=== PATIENT | female | born 1975 | race Asian ===

== ENCOUNTER 2016-11-10 17:11 | Inpatient (IN) | payer OTHER ==
[~2016-11-10] VITALS: Ht 154.9 cm; Wt 46.3 kg
[~2016-11-10 17:11] MED LIST: HYDR-3698 PO; LEVO5TAB13 PO; MONT10TA22 PO; RANI-362 PO; ZOLP10TA2 PO
[2016-11-10 17:17] VITALS: BP_SYST 131
[2016-11-10] MEDS ORDERED: NACL 0.9% 1,000 ML IV ONE (17:45)
[2016-11-10] MEDS ORDERED: ONDANSETRON HCL 4 MG/2 ML VIAL IVP ONE (17:45)
[2016-11-10] MEDS ORDERED: KETOROLAC TROMETHAMINE 30 MG VIAL IVP ONE (17:45)
[2016-11-10 18:01] LABS: BILIRUBIN,URINE 1+ (NEGATIVE); BLOOD, URINE 3+ (NEGATIVE); CLARITY/URINE HAZY (CLEAR); COLOR,URINE YELLOW (YELLOW); GLUCOSE,URINE NEGATIVE (NEGATIVE); KETONES,URINE 3+ (NEGATIVE); LEUKOCYTE ESTERASE ,URINE 1+ (NEGATIVE); NITRITE, URINE NEGATIVE (NEGATIVE); PROTEIN URINE 1+ (NEGATIVE); UROBILINOGEN,URINE 0.2 (0.2-1.0)
[2016-11-10] MEDS ORDERED: MORPHINE 2 MG/ML INJ. SYRINGE IVP ONE (18:15)
[2016-11-10 18:21] LABS: BACTERIA,URINE MODERATE /HPF (None Seen); RBC,URINE >100 /HPF (0-3)
[2016-11-10 18:35] LABS: BASOPHILS % (AUTO) 0.6 % (0.0-2.0); EOSINOPHILS % (AUTO) 0.3 % (0.0-4.0); HEMATOCRIT 34.1 % (36-48); HEMOGLOBIN 11.3 g/dL (12.0-16.0); LYMPHOCYTES # (AUTO) 0.8 K/uL (1.0-5.5); MEAN CORPUSCULAR HEMOGLOBIN 30 pg (27-31); MEAN CORPUSCULAR HGB CONC 33 % (32-36); MEAN CORPUSCULAR VOLUME 91 fL (79.0-98.0); MONOCYTES # (AUTO) 0.4 K/uL (0.0-1.0); NEUTROPHILS # (AUTO) 4.1 K/uL (1.8-7.7); NEUTROPHILS % (AUTO) 77.1 % (40.0-70.0); PLATELET COUNT (AUTO) 346 K/uL (130-430); RED BLOOD CELL COUNT(AUTO) 3.76 MIL/uL (4.2-6.2); RED CELL DISTRIBUTION WIDTH 12.9 % (9.0-15.0); WHITE BLOOD COUNT (AUTO) 5.4 K/uL (4.8-10.8)
[2016-11-10] MEDS ORDERED: cefTRIAXone 1 GM IVPB PREMIX 50 ML IV ONE (18:45)
[2016-11-10] MEDS ORDERED: LIDOCAINE VISCOUS 2%, 15 ML UDC MM ONE (18:45)
[2016-11-10] MEDS ORDERED: MORPHINE 4 MG/ML INJ. SYRINGE IVP ONE (18:45)
[2016-11-10 18:48] LABS: ALBUMIN 3.9 g/dL (3.4-4.8); CALCIUM 8.3 mg/dL (8.4-11.0); CREATININE 0.58 mg/dL (0.55-1.30); TOTAL BILIRUBIN 0.5 mg/dL (0.0-1.0); TOTAL PROTEIN, SERUM 6.7 g/dL (6.4-8.3)
[2016-11-10 18:58] LABS: POTASSIUM 2.9 mmol/L (3.5-5.1)
[2016-11-10] MEDS ORDERED: KCL 40 mEq in 100 mL (PREMIX) 100 ML IV ONE (19:45)
[2016-11-10] MEDS ORDERED: KCL 20 mEq in 100 mL (PREMIX) 100 ML IV ONE (19:57)
[2016-11-10 20:00] VITALS: BP_SYST 120
[2016-11-10 20:06] VITALS: BP_SYST 130
[2016-11-10] MEDS: D5W 500 ML IV SCH (20:26)
[2016-11-10] MEDS: HYDROmorphone 2 MG/ML VIAL IVP PRN (20:47)
[2016-11-10] MEDS: ONDANSETRON HCL 4 MG/2 ML VIAL IVP PRN (20:47)
[2016-11-10] MEDS ORDERED: ACETAMINOPHEN 650 MG/20.3 ML UDC NG PRN (22:30)
[2016-11-10] MEDS ORDERED: PIPERACILLIN/TAZOBACTAM 3.375 GM/VIAL (ZOSYN) IV ONE (22:41)
[2016-11-10] MEDS: PIPERACILLIN/TAZO 3.375/DEX-IS 50 ML IV SCH (23:55)
[2016-11-11] MEDS: HYDROmorphone 2 MG/ML VIAL IVP PRN ×5 (00:47→20:49)
[2016-11-11] MEDS: ONDANSETRON HCL 4 MG/2 ML VIAL IVP PRN ×4 (00:47→14:50)
[2016-11-11] MEDS: D5W 500 ML IV SCH ×4 (00:48→22:39)
[2016-11-11 01:02] VITALS: BP_SYST 126
[2016-11-11] MEDS: PIPERACILLIN/TAZO 3.375/DEX-IS 50 ML IV SCH ×4 (05:26→23:26)
[2016-11-11 05:29] VITALS: BP_SYST 122
[2016-11-11 06:45] LABS: BASOPHILS % (AUTO) 0.2 % (0.0-2.0); EOSINOPHILS # (AUTO) 0.1 K/uL (0.0-0.4); EOSINOPHILS % (AUTO) 1.1 % (0.0-4.0); HEMATOCRIT 33.2 % (36-48); HEMOGLOBIN 10.9 g/dL (12.0-16.0); LYMPHOCYTES # (AUTO) 1.9 K/uL (1.0-5.5); MEAN CORPUSCULAR HEMOGLOBIN 30 pg (27-31); MEAN CORPUSCULAR HGB CONC 33 % (32-36); MEAN CORPUSCULAR VOLUME 91 fL (79.0-98.0); MONOCYTES # (AUTO) 0.6 K/uL (0.0-1.0); MONOCYTES % (AUTO) 5.4 % (1.7-9.3); NEUTROPHILS % (AUTO) 75.3 % (40.0-70.0); PLATELET COUNT (AUTO) 315 K/uL (130-430); RED BLOOD CELL COUNT(AUTO) 3.64 MIL/uL (4.2-6.2); RED CELL DISTRIBUTION WIDTH 12.9 % (9.0-15.0); WHITE BLOOD COUNT (AUTO) 10.6 K/uL (4.8-10.8)
[2016-11-11 06:58] LABS: ALBUMIN 3.4 g/dL (3.4-4.8); CALCIUM 8.2 mg/dL (8.4-11.0); CREATININE 0.48 mg/dL (0.55-1.30); TOTAL BILIRUBIN 0.5 mg/dL (0.0-1.0); TOTAL PROTEIN, SERUM 6.2 g/dL (6.4-8.3)
[2016-11-11 07:49] LABS: POTASSIUM 2.8 mmol/L (3.5-5.1)
[2016-11-11 08:01] VITALS: BP_SYST 138
[2016-11-11] MEDS ORDERED: POTASSIUM CHLORIDE 40 MEQ in NS 250 ML IV ONE (08:45)
[2016-11-11] MEDS ORDERED: POTASSIUM CHLORIDE 40 MEQ, LIDOCAINE JECT 2% PF 100 MG 50 MG in NS 250 ML IV PRN (10:15)
[2016-11-11 12:08] VITALS: BP_SYST 130
[2016-11-11 16:39] VITALS: BP_SYST 130
[2016-11-11 20:43] VITALS: BP_SYST 133
[2016-11-12] VITALS: BP_SYST 120
[2016-11-12] MEDS: HYDROmorphone 2 MG/ML VIAL IVP PRN ×4 (00:59→16:27)
[2016-11-12] MEDS: D5W 500 ML IV SCH ×3 (02:48→14:32)
[2016-11-12 04:23] VITALS: BP_SYST 126
[2016-11-12] MEDS: PIPERACILLIN/TAZO 3.375/DEX-IS 50 ML IV SCH ×3 (05:14→17:09)
[2016-11-12 07:06] LABS: BASOPHILS % (AUTO) 0.4 % (0.0-2.0); EOSINOPHILS # (AUTO) 0.1 K/uL (0.0-0.4); EOSINOPHILS % (AUTO) 1.9 % (0.0-4.0); HEMATOCRIT 34.2 % (36-48); HEMOGLOBIN 11.1 g/dL (12.0-16.0); LYMPHOCYTES % (AUTO) 13.9 % (20.5-51.5); MEAN CORPUSCULAR HEMOGLOBIN 30 pg (27-31); MEAN CORPUSCULAR HGB CONC 33 % (32-36); MEAN CORPUSCULAR VOLUME 91 fL (79.0-98.0); MONOCYTES # (AUTO) 0.4 K/uL (0.0-1.0); MONOCYTES % (AUTO) 5.2 % (1.7-9.3); NEUTROPHILS # (AUTO) 5.5 K/uL (1.8-7.7); NEUTROPHILS % (AUTO) 78.6 % (40.0-70.0); PLATELET COUNT (AUTO) 306 K/uL (130-430); RED BLOOD CELL COUNT(AUTO) 3.75 MIL/uL (4.2-6.2); RED CELL DISTRIBUTION WIDTH 13.2 % (9.0-15.0)
[2016-11-12 07:34] LABS: CALCIUM 8.4 mg/dL (8.4-11.0); CREATININE 0.49 mg/dL (0.55-1.30)
[2016-11-12 08:30] VITALS: BP_SYST 127
[2016-11-12 11:27] VITALS: BP_SYST 114
[2016-11-12 15:34] VITALS: BP_SYST 113
[2016-11-12] MEDS ORDERED: CIPR-211 PO (15:45)
[2016-11-12] MEDS ORDERED: DOCU250C PO (15:45)
[2016-11-12] MEDS ORDERED: POTASSIUM CHLORIDE 20 MEQ TAB.PRT.SR PO ONE ×2 (16:00→19:15)
[2016-11-12 18:30] VITALS: BP_SYST 113
[2016-11-12 18:39] LABS: CALCIUM 8.6 mg/dL (8.4-11.0); CREATININE 0.58 mg/dL (0.55-1.30); POTASSIUM 3.2 mmol/L (3.5-5.1)
== END 2016-11-12 19:40 | disposition home or self-care (01) | DRG 389 ==
LOC: SED 17:11 → SMU 19:05
PROVIDERS: ADMIT General Practice; ATTEND General Practice
DX: K56.60 Unspecified intestinal obstruction (principal); N39.0 Urinary tract infection, site not specified; N20.0 Calculus of kidney; E87.6 Hypokalemia; Z87.442 Personal history of urinary calculi; Z98.891 History of uterine scar from previous surgery
CPT/HCPCS: 36415; 74000-TC; 80048; 80053; 81000-TC; 82150-TC; 83605; 83690-TC; 83735-TC; 84702-TC; 85025; 87040-TC; 87086; 96361; 96365; 96375; 96376; 99291; J0696; J1170; J1885; J2001; J2270; J2405; J2543; J3480; J7050; J7060

== ENCOUNTER 2017-04-25 01:10 | Inpatient (IN) | payer OTHER ==
[~2017-04-25] VITALS: Ht 154.9 cm; Wt 47.6 kg
[~2017-04-25 01:10] MED LIST changes: +CIPR-211 PO; +DOCU250C PO; -LEVO5TAB13 PO; -MONT10TA22 PO
[2017-04-25 01:30] VITALS: BP_SYST 125
[2017-04-25] MEDS ORDERED: CETI10CA PO (01:47)
[2017-04-25] MEDS ORDERED: CETI1TAB2 PO (01:47)
[2017-04-25 01:58] LABS: BILIRUBIN,URINE NEGATIVE (NEGATIVE); BLOOD, URINE 3+ (NEGATIVE); CLARITY/URINE CLEAR (CLEAR); COLOR,URINE YELLOW (YELLOW); GLUCOSE,URINE NEGATIVE (NEGATIVE); KETONES,URINE NEGATIVE (NEGATIVE); LEUKOCYTE ESTERASE ,URINE TRACE (NEGATIVE); NITRITE, URINE NEGATIVE (NEGATIVE); PH,URINE 5.5 (5.0-8.0); PROTEIN URINE TRACE (NEGATIVE); UROBILINOGEN,URINE 0.2 (0.2-1.0)
[2017-04-25 02:11] LABS: BACTERIA,URINE MODERATE /HPF (None Seen); MUCUS,URINE 1+ /LPF (None Seen)
[2017-04-25] MEDS ORDERED: ONDANSETRON 4 MG ODT TAB PO ONE (02:15)
[2017-04-25] MEDS: HYDROcodone/ACETAMIN 5-325 MG TAB (NORCO/ VICODIN) PO ONE ×2 (02:23→02:27)
[2017-04-25] MEDS ORDERED: KETOROLAC TROMETHAMINE 30 MG VIAL IM ONE (02:45)
[2017-04-25] MEDS ORDERED: NACL 0.9% 1,000 ML IV ONE (04:15)
[2017-04-25] MEDS ORDERED: MORPHINE 4 MG/ML INJ. SYRINGE IVP ONE (04:15)
[2017-04-25 04:51] LABS: HEMATOCRIT 30.1 % (36-48); HEMOGLOBIN 9.4 g/dL (12.0-16.0); RED BLOOD CELL COUNT(AUTO) 3.75 MIL/uL (4.2-6.2); WHITE BLOOD COUNT (AUTO) 7.7 K/uL (4.8-10.8)
[2017-04-25 04:52] LABS: BASOPHILS # (AUTO) 0.1 K/uL (0.0-0.2); BASOPHILS % (AUTO) 1.4 % (0.0-2.0); EOSINOPHILS # (AUTO) 0.1 K/uL (0.0-0.4); EOSINOPHILS % (AUTO) 1.3 % (0.0-4.0); LYMPHOCYTES # (AUTO) 1.5 K/uL (1.0-5.5); LYMPHOCYTES % (AUTO) 19.1 % (20.5-51.5); MEAN CORPUSCULAR HEMOGLOBIN 25 pg (27-31); MEAN CORPUSCULAR HGB CONC 31 % (32-36); MEAN CORPUSCULAR VOLUME 80 fL (79.0-98.0); MONOCYTES # (AUTO) 0.7 K/uL (0.0-1.0); MONOCYTES % (AUTO) 9.1 % (1.7-9.3); NEUTROPHILS # (AUTO) 5.3 K/uL (1.8-7.7); NEUTROPHILS % (AUTO) 69.1 % (40.0-70.0); PLATELET COUNT (AUTO) 400 K/uL (130-430); RED CELL DISTRIBUTION WIDTH 16.1 % (9.0-15.0)
[2017-04-25 05:10] LABS: CALCIUM 7.9 mg/dL (8.4-11.0); CREATININE 0.83 mg/dL (0.55-1.30)
[2017-04-25 05:15] LABS: ALBUMIN 3.6 g/dL (3.4-4.8); TOTAL BILIRUBIN 0.4 mg/dL (0.0-1.0)
[2017-04-25 05:16] LABS: POTASSIUM 2.8 mmol/L (3.5-5.1)
[2017-04-25] MEDS ORDERED: POTASSIUM CHLORIDE 20 MEQ/PKT PACKET PO ONE (05:30)
[2017-04-25] MEDS ORDERED: POTASSIUM CHLORIDE 20 MEQ TAB.PRT.SR PO ONE (05:45)
[2017-04-25] MEDS ORDERED: ONDANSETRON HCL 4 MG/2 ML VIAL IVP PRN (05:45)
[2017-04-25 06:12] VITALS: BP_SYST 132
[2017-04-25] MEDS: NACL 0.9% 1,000 ML IV SCH ×3 (07:33→21:40)
[2017-04-25 08:00] VITALS: BP_SYST 132
[2017-04-25] MEDS: TAMSULOSIN HCL 0.4 MG CAP PO SCH ×3 (08:08→21:39)
[2017-04-25] MEDS: cefTRIAXone 1 GM IVPB PREMIX 50 ML IV SCH (09:24)
[2017-04-25] MEDS: KETOROLAC TROMETHAMINE 15 MG VIAL IVP PRN (09:25)
[2017-04-25] MEDS ORDERED: MORPHINE 4 MG/ML INJ. SYRINGE IVP PRN ×4 (10:00→19:45)
[2017-04-25] MEDS ORDERED: ZOLPIDEM TARTRATE 5 MG TABLET PO PRN (10:15)
[2017-04-25] MEDS: POTASSIUM CHLORIDE 20 MEQ TAB.PRT.SR PO SCH ×2 (11:01→21:39)
[2017-04-25 12:00] VITALS: BP_SYST 119
[2017-04-25 14:52] LABS: INR 1.3 (0.8-1.2)
[2017-04-25] MEDS: MORPHINE 2 MG/ML INJ. SYRINGE IVP PRN (15:24)
[2017-04-25 16:46] VITALS: BP_SYST 147
[2017-04-25] MEDS ORDERED: IOPAMIDOL 100 ML INFUS..BTL IV ONE (18:35)
[2017-04-25] MEDS ORDERED: NS IRRIG SOLN 1000 ML IR ONE (18:35)
[2017-04-25] MEDS ORDERED: ONDANSETRON HCL 4 MG/2 ML VIAL IVP ONE (18:35)
[2017-04-25] MEDS ORDERED: LR 1,000 ML IV.SOLN IV ONE (18:35)
[2017-04-25] MEDS ORDERED: MIVACURIUM CHLORIDE 20 MG/10 ML VIAL (MIVACRON) INJ ONE (18:35)
[2017-04-25] MEDS ORDERED: WATER FOR IRRIGATION STERILE IR ONE (18:35)
[2017-04-25] MEDS ORDERED: SEVOFLURANE 15 MIN GAS INH ONE (18:35)
[2017-04-25] MEDS ORDERED: PROPOFOL 200MG/ 20ML VIAL (DIPRIVAN) IV ONE (18:35)
[2017-04-25] MEDS ORDERED: MIDAZOLAM HCL 5 MG/5 ML VIAL IVP ONE (18:35)
[2017-04-25] MEDS ORDERED: IOHEXOL 50 ML IV ONE (18:47)
[2017-04-25] MEDS ORDERED: LR 1,000 ML IV SCH (19:36)
[2017-04-25] MEDS ORDERED: METOCLOPRAMIDE HCL 10 MG/2 ML VIAL IVP PRN (19:45)
[2017-04-25 20:00] VITALS: BP_SYST 111; BP_SYST 118
[2017-04-26 00:47] VITALS: BP_SYST 111
[2017-04-26 06:48] VITALS: BP_SYST 104
[2017-04-26] MEDS: MORPHINE 2 MG/ML INJ. SYRINGE IVP PRN (06:54)
[2017-04-26 07:03] LABS: BASOPHILS % (AUTO) 0.8 % (0.0-2.0); EOSINOPHILS # (AUTO) 0.2 K/uL (0.0-0.4); EOSINOPHILS % (AUTO) 3.8 % (0.0-4.0); HEMATOCRIT 27.5 % (36-48); HEMOGLOBIN 8.8 g/dL (12.0-16.0); LYMPHOCYTES % (AUTO) 22.9 % (20.5-51.5); MEAN CORPUSCULAR HEMOGLOBIN 25 pg (27-31); MEAN CORPUSCULAR HGB CONC 32 % (32-36); MEAN CORPUSCULAR VOLUME 79 fL (79.0-98.0); MONOCYTES # (AUTO) 0.4 K/uL (0.0-1.0); MONOCYTES % (AUTO) 7.9 % (1.7-9.3); NEUTROPHILS # (AUTO) 2.9 K/uL (1.8-7.7); NEUTROPHILS % (AUTO) 64.6 % (40.0-70.0); PLATELET COUNT (AUTO) 419 K/uL (130-430); RED BLOOD CELL COUNT(AUTO) 3.47 MIL/uL (4.2-6.2); RED CELL DISTRIBUTION WIDTH 15.7 % (9.0-15.0); WHITE BLOOD COUNT (AUTO) 4.5 K/uL (4.8-10.8)
[2017-04-26 07:32] LABS: CALCIUM 7.8 mg/dL (8.4-11.0); CREATININE 0.66 mg/dL (0.55-1.30); PHOSPHORUS 3.8 mg/dL (2.7-4.5); POTASSIUM 3.8 mmol/L (3.5-5.1)
[2017-04-26 07:44] VITALS: BP_SYST 138
[2017-04-26] MEDS ORDERED: NON-FORMULARY MEDICATION (Cetirizine Hcl (Zyrtec) 10 MG) PO SCH (09:00)
[2017-04-26] MEDS: POTASSIUM CHLORIDE 20 MEQ TAB.PRT.SR PO SCH (09:43)
[2017-04-26] MEDS: TAMSULOSIN HCL 0.4 MG CAP PO SCH (09:43)
[2017-04-26] MEDS: NACL 0.9% 1,000 ML IV SCH ×2 (09:44→13:43)
[2017-04-26] MEDS: cefTRIAXone 1 GM IVPB PREMIX 50 ML IV SCH (09:44)
[2017-04-26] MEDS: KETOROLAC TROMETHAMINE 15 MG VIAL IVP PRN (09:44)
[2017-04-26 13:00] VITALS: BP_SYST 115
[2017-04-26 16:14] VITALS: BP_SYST 104
[2017-04-26 18:15] VITALS: BP_SYST 104
== END 2017-04-26 18:35 | disposition home or self-care (01) | DRG 669 ==
LOC: SED 01:10 → STU 05:42
PROVIDERS: ADMIT Internal Medicine; ATTEND Internal Medicine
PROC: 0TC68ZZ Extirpation of Matter from Right Ureter, Via Natural or Artificial Opening Endoscopic (ICD-10-PCS; 2017-04-25)
PROC: 0T768DZ Dilation of Right Ureter with Intraluminal Device, Via Natural or Artificial Opening Endoscopic (ICD-10-PCS; principal; 2017-04-25 17:45)
DX: N13.2 Hydronephrosis with renal and ureteral calculous obstruction (principal); D50.9 Iron deficiency anemia, unspecified; E87.6 Hypokalemia; Z79.899 Other long term (current) drug therapy; Z87.442 Personal history of urinary calculi
CPT/HCPCS: 36415; 71010; 76000; 80048; 80053; 81000-TC; 83735-TC; 84100-TC; 84702-TC; 85025; 85610-TC; 85730-TC; 87081; 87086; 93005; 94010; 96361; 96372; 96374; 99285; C1758; C1769; C2625; J0696; J1885; J2250; J2270; J2405; J2704; J7030; J7120; Q0162; Q9967

== ENCOUNTER 2018-09-03 08:56 | Emergency (ER) | payer OTHER ==
[~2018-09-03] VITALS: Ht 154.9 cm; Wt 49.0 kg
[~2018-09-03 08:56] MED LIST changes: +CETI10CA PO; -CIPR-211 PO; -DOCU250C PO; -HYDR-3698 PO; -RANI-362 PO
[2018-09-03 08:57] VITALS: BP_SYST 125
--- NOTE | 2018-09-03 08:57 | NUR ---
Patient arrived via POV, AAOx4, and ambulatory with steady gait. Patient states she feels like she has another kidney stone. Patient states back pain began last night to right flank region. Laying down makes it better. 7/10 pain, sharp. Patient states she had laser surgery to left side 2 weeks ago. Patient able to give urine specimen. Patient changed into a gown.
--- NOTE | 2018-09-03 08:57 | NUR ---
Patient to ER bed 8 to gown for evaluation. Side rails up. Assumed care.
--- NOTE | 2018-09-03 09:25 | NUR ---
ER at bedside examining patient.
[2018-09-03] MEDS ORDERED: MORPHINE 2 MG/ML INJ. SYRINGE IVP ONE (09:45)
[2018-09-03] MEDS ORDERED: KETOROLAC TROMETHAMINE 30 MG VIAL IVP ONE (09:45)
[2018-09-03] MEDS ORDERED: ONDANSETRON HCL 4 MG/2 ML VIAL IVP ONE (09:45)
[2018-09-03] MEDS ORDERED: MORPHINE 4 MG/ML INJ. SYRINGE IVP ONE ×2 (10:00→12:30)
[2018-09-03 10:04] LABS: BILIRUBIN,URINE NEGATIVE (NEGATIVE); BLOOD, URINE 3+ (NEGATIVE); CLARITY/URINE CLEAR (CLEAR); COLOR,URINE YELLOW (YELLOW); GLUCOSE,URINE NEGATIVE (NEGATIVE); KETONES,URINE TRACE (NEGATIVE); LEUKOCYTE ESTERASE ,URINE 2+ (NEGATIVE); NITRITE, URINE NEGATIVE (NEGATIVE); PH,URINE 5.5 (5.0-8.0); PROTEIN URINE 2+ (NEGATIVE); UROBILINOGEN,URINE 0.2 (0.2-1.0)
--- NOTE | 2018-09-03 10:05 | NUR ---
# 20 gauge angiocath placed to RAC. Use of asceptic technique. Opsite placed over site. Blood return noted. Blood for lab drawn from site. Flushed with 10 cc of normal saline. No evidence of infiltration noted. Patient tolerated well.
--- NOTE | 2018-09-03 10:17 | NUR ---
Patient medicated for pain prior to CT Scan, patient tolerated well. Pain rated at 8/10.
[2018-09-03 10:23] LABS: BACTERIA,URINE MODERATE /HPF (None Seen); RBC,URINE 80-100 /HPF (0-3); WBC,URINE 20-50 /HPF (0-3)
[2018-09-03 10:24] LABS: MUCUS,URINE None Seen /LPF (None Seen); YEAST,URINE None Seen /HPF (None Seen)
--- NOTE | 2018-09-03 10:24 | NUR ---
Patient taken to CT scan for exam. Patient pre medicated with pain medication prior to transport. Will follow up upon return.
[2018-09-03 10:27] LABS: HEMATOCRIT 35.6 % (36-48); HEMOGLOBIN 11.6 g/dL (12.0-16.0); MEAN CORPUSCULAR HEMOGLOBIN 30 pg (27-31); MEAN CORPUSCULAR HGB CONC 33 % (32-36); MEAN CORPUSCULAR VOLUME 92 fL (79.0-98.0); RED BLOOD CELL COUNT(AUTO) 3.88 MIL/uL (4.2-6.2); WHITE BLOOD COUNT (AUTO) 4.1 K/uL (4.8-10.8)
[2018-09-03 10:28] LABS: BASOPHILS % (AUTO) 0.9 % (0.0-2.0); CALCIUM 8.3 mg/dL (8.4-11.0); CREATININE 0.55 mg/dL (0.55-1.30); EOSINOPHILS # (AUTO) 0.1 K/uL (0.0-0.4); EOSINOPHILS % (AUTO) 3.7 % (0.0-4.0); LYMPHOCYTES # (AUTO) 1.3 K/uL (1.0-5.5); LYMPHOCYTES % (AUTO) 32.5 % (20.5-51.5); MONOCYTES # (AUTO) 0.3 K/uL (0.0-1.0); MONOCYTES % (AUTO) 7.8 % (1.7-9.3); NEUTROPHILS # (AUTO) 2.2 K/uL (1.8-7.7); NEUTROPHILS % (AUTO) 55.1 % (40.0-70.0); PLATELET COUNT (AUTO) 303 K/uL (130-430); POTASSIUM 3.4 mmol/L (3.5-5.1); RED CELL DISTRIBUTION WIDTH 14.2 % (9.0-15.0)
[2018-09-03 10:36] LABS: INR 1.3 (0.8-1.2); PROTHROMBIN TIME 12.9 SECS (9.5-12.5)
[2018-09-03 10:43] LABS: ALBUMIN 3.5 g/dL (3.4-4.8); TOTAL BILIRUBIN 0.4 mg/dL (0.0-1.0)
--- NOTE | 2018-09-03 10:50 | NUR ---
Pain reassessed at 10. Patient states tolerable at this time. Patient resting comfortably, needs are met at this time.
--- NOTE | 2018-09-03 11:28 | NUR ---
Patient given blankets as requested. Patient needs are met. Will continue to follow up and monitor.
[2018-09-03] MEDS ORDERED: cefTRIAXone 1 GM IVPB PREMIX 50 ML IV ONE (12:30)
--- NOTE | 2018-09-03 12:48 | NUR ---
Patient given pain medication and IV antibiotics. Patient tolerated well. Will continue to follow up and monitor.
[2018-09-03 13:38] VITALS: BP_SYST 109
--- NOTE | 2018-09-03 13:38 | NUR ---
Patient given written and verbal discharge instructions and verbalizes understanding. ER MD discussed with patient the results and treatment provided. Patient in stable condition. ID arm band removed. IV catheter removed intact and dressing applied, no active bleeding. Rx of Zofran, Motrin, Cipro, and [place] given. Patient educated on pain management and to follow up with PMD. Pain Scale 2/10. Opportunity for questions provided and answered. Medication side effect fact sheet provided.
== END 2018-09-03 13:38 | disposition home or self-care (01) ==
LOC: SED 08:56
DX: N39.0 Urinary tract infection, site not specified (principal); R03.0 Elevated blood-pressure reading, without diagnosis of hypertension; Z87.442 Personal history of urinary calculi; Z79.899 Other long term (current) drug therapy
CPT/HCPCS: 36415; 74176; 80053; 81000; 81025; 83690; 84702; 85025; 85610; 85730; 87086; 96374; 96375; 96376; 99284; J0696; J1885; J2270; J2405

== ENCOUNTER 2019-07-27 17:51 | Emergency (ER) | payer OTHER ==
[~2019-07-27] VITALS: Ht 154.9 cm; Wt 48.5 kg
[2019-07-27 17:54] VITALS: BP_SYST 124
[2019-07-27 18:26] LABS: BASOPHILS # (AUTO) 0.1 K/uL (0.0-0.2); BASOPHILS % (AUTO) 0.8 % (0.0-2.0); EOSINOPHILS # (AUTO) 0.1 K/uL (0.0-0.4); EOSINOPHILS % (AUTO) 1.5 % (0.0-4.0); HEMATOCRIT 35.3 % (36-48); HEMOGLOBIN 11.7 g/dL (12.0-16.0); LYMPHOCYTES # (AUTO) 2.3 K/uL (1.0-5.5); LYMPHOCYTES % (AUTO) 39.4 % (20.5-51.5); MEAN CORPUSCULAR HEMOGLOBIN 29 pg (27-31); MEAN CORPUSCULAR HGB CONC 33 % (32-36); MEAN CORPUSCULAR VOLUME 88 fL (79.0-98.0); MONOCYTES # (AUTO) 0.4 K/uL (0.0-1.0); MONOCYTES % (AUTO) 6.3 % (1.7-9.3); NEUTROPHILS # (AUTO) 3.1 K/uL (1.8-7.7); PLATELET COUNT (AUTO) 377 K/uL (130-430); RED BLOOD CELL COUNT(AUTO) 4.02 MIL/uL (4.2-6.2)
[2019-07-27 18:55] LABS: CALCIUM 8.9 mg/dL (8.4-11.0); CREATININE 0.69 mg/dL (0.55-1.30); POTASSIUM 3.9 mmol/L (3.5-5.1)
[2019-07-27 19:00] LABS: ALBUMIN 3.9 g/dL (3.4-4.8); TOTAL BILIRUBIN 0.3 mg/dL (0.0-1.0)
[2019-07-27 19:11] LABS: BILIRUBIN,URINE NEGATIVE (NEGATIVE); BLOOD, URINE 3+ (NEGATIVE); CLARITY/URINE CLEAR (CLEAR); COLOR,URINE YELLOW (YELLOW); GLUCOSE,URINE NEGATIVE (NEGATIVE); KETONES,URINE NEGATIVE (NEGATIVE); LEUKOCYTE ESTERASE ,URINE NEGATIVE (NEGATIVE); NITRITE, URINE NEGATIVE (NEGATIVE); PROTEIN URINE NEGATIVE (NEGATIVE); UROBILINOGEN,URINE 0.2 (0.2-1.0)
[2019-07-27] MEDS ORDERED: KETOROLAC TROMETHAMINE 30 MG VIAL IVP ONE (20:30)
[2019-07-27] MEDS ORDERED: NACL 0.9% 1,000 ML IV ONE (20:30)
[2019-07-27 20:33] LABS: BACTERIA,URINE RARE /HPF (None Seen); RBC,URINE 20-50 /HPF (0-3); WBC,URINE 0-3 /HPF (0-3)
[2019-07-27] MEDS ORDERED: MORPHINE 4 MG/ML INJ. SYRINGE IVP ONE (21:15)
[2019-07-27 21:41] VITALS: BP_SYST 117
== END 2019-07-27 21:38 | disposition home or self-care (01) ==
LOC: SED 17:51
DX: N13.30 Unspecified hydronephrosis (principal); Z79.899 Other long term (current) drug therapy
CPT/HCPCS: 36415; 74176; 80053; 81000; 81025; 85025; 96374; 96375; 99284; J1885; J2270; J7030

== ENCOUNTER 2019-07-29 09:21 | Emergency (ER) | payer OTHER ==
[~2019-07-29] VITALS: Ht 149.9 cm; Wt 56.7 kg
[2019-07-29 09:25] VITALS: BP_SYST 121
[2019-07-29] MEDS ORDERED: NACL 0.9% 1,000 ML IV ONE (09:56)
[2019-07-29] MEDS ORDERED: MORPHINE 2 MG/ML INJ. SYRINGE IVP ONE ×3 (10:15→16:00)
[2019-07-29] MEDS ORDERED: ONDANSETRON HCL 4 MG/2 ML VIAL IVP ONE (10:15)
[2019-07-29 10:18] LABS: BILIRUBIN,URINE NEGATIVE (NEGATIVE); CLARITY/URINE CLEAR (CLEAR); GLUCOSE,URINE NEGATIVE (NEGATIVE); KETONES,URINE NEGATIVE (NEGATIVE); LEUKOCYTE ESTERASE ,URINE NEGATIVE (NEGATIVE); NITRITE, URINE NEGATIVE (NEGATIVE); PH,URINE 6.5 (5.0-8.0); PROTEIN URINE NEGATIVE (NEGATIVE); UROBILINOGEN,URINE 0.2 (0.2-1.0)
[2019-07-29 10:30] LABS: BLOOD, URINE TRACE (NEGATIVE); COLOR,URINE STRAW (YELLOW)
[2019-07-29 10:36] LABS: BASOPHILS % (AUTO) 0.7 % (0.0-2.0); EOSINOPHILS # (AUTO) 0.1 K/uL (0.0-0.4); EOSINOPHILS % (AUTO) 1.9 % (0.0-4.0); HEMATOCRIT 35.6 % (36-48); HEMOGLOBIN 11.5 g/dL (12.0-16.0); LYMPHOCYTES # (AUTO) 1.3 K/uL (1.0-5.5); LYMPHOCYTES % (AUTO) 30.4 % (20.5-51.5); MEAN CORPUSCULAR HEMOGLOBIN 29 pg (27-31); MEAN CORPUSCULAR HGB CONC 32 % (32-36); MEAN CORPUSCULAR VOLUME 89 fL (79.0-98.0); MONOCYTES # (AUTO) 0.4 K/uL (0.0-1.0); MONOCYTES % (AUTO) 10.2 % (1.7-9.3); NEUTROPHILS # (AUTO) 2.4 K/uL (1.8-7.7); NEUTROPHILS % (AUTO) 56.8 % (40.0-70.0); PLATELET COUNT (AUTO) 355 K/uL (130-430); RED BLOOD CELL COUNT(AUTO) 4.01 MIL/uL (4.2-6.2); RED CELL DISTRIBUTION WIDTH 15.9 % (9.0-15.0); WHITE BLOOD COUNT (AUTO) 4.2 K/uL (4.8-10.8)
[2019-07-29 10:39] LABS: CALCIUM 9.1 mg/dL (8.4-11.0); CREATININE 0.76 mg/dL (0.55-1.30); POTASSIUM 3.7 mmol/L (3.5-5.1)
[2019-07-29 10:44] LABS: ALBUMIN 3.8 g/dL (3.4-4.8); TOTAL BILIRUBIN 0.5 mg/dL (0.0-1.0)
[2019-07-29 10:58] LABS: BACTERIA,URINE RARE /HPF (None Seen); WBC,URINE NONE SEEN /HPF (0-3)
[2019-07-29] MEDS ORDERED: fentaNYL CITRATE/PF 100 MCG/2 ML AMP IVP ONE (11:00)
[2019-07-29 16:49] VITALS: BP_SYST 122
== END 2019-07-29 16:49 | disposition short-term general hospital (02) ==
LOC: SED 09:21
DX: N13.30 Unspecified hydronephrosis (principal); N20.0 Calculus of kidney; Z87.442 Personal history of urinary calculi
CPT/HCPCS: 36415; 76770; 80053; 81000; 81025; 85025; 96374; 96375; 96376; 99285; J2270; J2405; J3010; J7030

== ENCOUNTER 2021-08-23 06:33 | Emergency (ER) | payer OTHER ==
[~2021-08-23] VITALS: Ht 154.9 cm; Wt 49.9 kg
[2021-08-23 06:58] VITALS: BP_SYST 100
[2021-08-23 08:07] LABS: BILIRUBIN,URINE 1+ (NEGATIVE); BLOOD, URINE 1+ (NEGATIVE); CLARITY/URINE SL CLOUDY (CLEAR); COLOR,URINE YELLOW (YELLOW); GLUCOSE,URINE NEGATIVE (NEGATIVE); KETONES,URINE 3+ (NEGATIVE); LEUKOCYTE ESTERASE ,URINE NEGATIVE (NEGATIVE); NITRITE, URINE NEGATIVE (NEGATIVE); PROTEIN URINE 1+ (NEGATIVE); UROBILINOGEN,URINE 0.2 (0.2-1.0)
[2021-08-23 08:11] LABS: BASOPHILS % (AUTO) 0.8 % (0.0-2.0); EOSINOPHILS # (AUTO) 0.1 K/uL (0.0-0.4); HEMATOCRIT 38.7 % (36-48); HEMOGLOBIN 12.7 g/dL (12.0-16.0); LYMPHOCYTES # (AUTO) 1.2 K/uL (1.0-5.5); LYMPHOCYTES % (AUTO) 40.2 % (20.5-51.5); MEAN CORPUSCULAR HEMOGLOBIN 28 pg (27-31); MEAN CORPUSCULAR HGB CONC 33 % (32-36); MEAN CORPUSCULAR VOLUME 84 fL (79.0-98.0); MONOCYTES # (AUTO) 0.3 K/uL (0.0-1.0); MONOCYTES % (AUTO) 10.8 % (1.7-9.3); NEUTROPHILS # (AUTO) 1.3 K/uL (1.8-7.7); NEUTROPHILS % (AUTO) 45.2 % (40.0-70.0); PLATELET COUNT (AUTO) 341 K/uL (130-430); RED BLOOD CELL COUNT(AUTO) 4.61 MIL/uL (4.2-6.2); RED CELL DISTRIBUTION WIDTH 15.3 % (9.0-15.0); WHITE BLOOD COUNT (AUTO) 2.9 K/uL (4.8-10.8)
[2021-08-23 08:26] LABS: CALCIUM 8.3 mg/dL (8.4-11.0); CREATININE 0.51 mg/dL (0.55-1.30); POTASSIUM 3.4 mmol/L (3.5-5.1)
[2021-08-23 08:32] LABS: ALBUMIN 3.8 g/dL (3.4-4.8); TOTAL BILIRUBIN 0.3 mg/dL (0.0-1.0)
[2021-08-23 08:44] LABS: BACTERIA,URINE FEW /HPF (None Seen); WBC,URINE NONE SEEN /HPF (0-3)
[2021-08-23] MEDS ORDERED: MORPHINE 4 MG INJ. 4 MG/ML VIAL IVP ONE (08:45)
[2021-08-23] MEDS ORDERED: KETOROLAC TROMETHAMINE 30 MG VIAL IVP ONE (08:45)
[2021-08-23] MEDS ORDERED: HYDR-3917 PO ×2 (09:11)
[2021-08-23] MEDS ORDERED: HYDROcodone/ACETAMIN 10-325 MG TAB PO ONE (09:15)
[2021-08-23 09:25] VITALS: BP_SYST 138
[2021-08-23] MEDS ORDERED: HYDR-3927 PO (09:56)
== END 2021-08-23 09:00 | disposition home or self-care (01) ==
LOC: SED 06:33
DX: R10.9 Unspecified abdominal pain (principal); R31.9 Hematuria, unspecified; R11.0 Nausea; Z87.442 Personal history of urinary calculi
CPT/HCPCS: 36415; 74176; 76376; 80053; 81000; 81025; 85025; 96374; 96375; 99284; J1885; J2270

== ENCOUNTER 2021-12-25 00:13 | Emergency (ER) | payer OTHER ==
[~2021-12-25] VITALS: Ht 154.9 cm; Wt 54.4 kg
[~2021-12-25 00:13] MED LIST changes: +HYDR-3927 PO
[2021-12-25 00:26] VITALS: BP_SYST 118
[2021-12-25 01:23] LABS: BILIRUBIN,URINE NEGATIVE (NEGATIVE); BLOOD, URINE 1+ (NEGATIVE); CLARITY/URINE CLEAR (CLEAR); COLOR,URINE YELLOW (YELLOW); GLUCOSE,URINE NEGATIVE (NEGATIVE); KETONES,URINE NEGATIVE (NEGATIVE); LEUKOCYTE ESTERASE ,URINE NEGATIVE (NEGATIVE); NITRITE, URINE NEGATIVE (NEGATIVE); PROTEIN URINE TRACE (NEGATIVE); UROBILINOGEN,URINE 0.2 (0.2-1.0)
[2021-12-25 01:26] LABS: BASOPHILS % (AUTO) 0.8 % (0.0-2.0); EOSINOPHILS # (AUTO) 0.2 K/uL (0.0-0.4); EOSINOPHILS % (AUTO) 2.5 % (0.0-4.0); HEMATOCRIT 36.5 % (36-48); HEMOGLOBIN 12.3 g/dL (12.0-16.0); LYMPHOCYTES # (AUTO) 2.3 K/uL (1.0-5.5); LYMPHOCYTES % (AUTO) 37.1 % (20.5-51.5); MEAN CORPUSCULAR HEMOGLOBIN 30 pg (27-31); MEAN CORPUSCULAR HGB CONC 34 % (32-36); MEAN CORPUSCULAR VOLUME 91 fL (79.0-98.0); MONOCYTES # (AUTO) 0.5 K/uL (0.0-1.0); MONOCYTES % (AUTO) 7.8 % (1.7-9.3); NEUTROPHILS # (AUTO) 3.1 K/uL (1.8-7.7); NEUTROPHILS % (AUTO) 51.8 % (40.0-70.0); PLATELET COUNT (AUTO) 326 K/uL (130-430); RED BLOOD CELL COUNT(AUTO) 4.04 MIL/uL (4.2-6.2); WHITE BLOOD COUNT (AUTO) 6.1 K/uL (4.8-10.8)
[2021-12-25 01:48] LABS: URINE SULFO SALICYLIC ACID NEGATIVE (NEGATIVE)
[2021-12-25 02:25] LABS: CALCIUM 8.6 mg/dL (8.4-11.0); CREATININE 0.7 mg/dL (0.55-1.30); POTASSIUM 3.6 mmol/L (3.5-5.1)
[2021-12-25 02:32] LABS: ALBUMIN 3.5 g/dL (3.4-4.8); TOTAL BILIRUBIN 0.5 mg/dL (0.0-1.0)
[2021-12-25] MEDS ORDERED: MORPHINE 4 MG INJ. 4 MG/ML VIAL IVP ONE (04:15)
[2021-12-25] MEDS ORDERED: NACL 0.9% 1,000 ML IV ONE (04:15)
[2021-12-25] MEDS ORDERED: ONDANSETRON HCL 4 MG/2 ML VIAL IVP ONE ×2 (04:15)
[2021-12-25] MEDS ORDERED: KETOROLAC TROMETHAMINE 30 MG VIAL IVP ONE (04:15)
[2021-12-25] MEDS ORDERED: HYDROmorphone 1 MG/ML INJ. CARTRIDGE IVP ONE ×2 (05:15→06:30)
--- NOTE | 2021-12-25 05:16 | NUR ---
PATIENT TO CT SCAN.
[2021-12-25] MEDS ORDERED: ONDANSETRON HCL 4 MG/2 ML VIAL ONE (06:44)
--- NOTE | 2021-12-25 07:11 | NUR ---
REPORT GIVEN TO LINDY CARRINGTON
--- NOTE | 2021-12-25 07:24 | NUR ---
Assumed care of pt and pt is in bed resting with no s/s of distress. A&Ox4. Skin intact. VSS. Pt c/o left flank pain 3/10 non-radiating. There is a 22g IV intact on right hand no infiltration noted. NS running bolus. No chest pain and no sob. Deniesn/v. Bed in lowest position.
[2021-12-25] MEDS ORDERED: TRAM50TA PO (07:28)
[2021-12-25 08:11] VITALS: BP_SYST 128
--- NOTE | 2021-12-25 08:12 | NUR ---
Patient given written and verbal discharge instructions and verbalizes understanding. ER MD discussed with patient the results and treatment provided. Patient in stable condition. ID arm band removed. IV catheter removed intact and dressing applied, no active bleeding. Rx of Tramadol given. Patient educated on pain management and to follow up with PMD. Pain Scale 0/10. Opportunity for questions provided and answered. Medication side effect fact sheet provided.
== END 2021-12-25 08:11 | disposition home or self-care (01) ==
LOC: SED 00:13
DX: N23 Unspecified renal colic (principal); Z79.899 Other long term (current) drug therapy
CPT/HCPCS: 99284; 74176; 96374; 96375; 96361; 80053; 85025; 87040; 36415; 76376; 96376; 81025; 83605; 81003; J1885; J2405; J1170; J2270; J7030

== ENCOUNTER 2023-11-23 20:38 | Emergency (ER) | payer OTHER ==
[~2023-11-23] VITALS: Ht 154.9 cm; Wt 47.6 kg
[~2023-11-23 20:38] MED LIST changes: +TRAM50TA PO
[2023-11-23 20:42] VITALS: BP_SYST 92; PULSE 70; RESP 20; TEMP 97.8; O2SAT 100
[2023-11-23] MEDS: HYDROmorphone 1 MG/ML INJ. CARTRIDGE IVP ONE (21:16)
[2023-11-23] MEDS: ONDANSETRON HCL 4 MG/2 ML VIAL IVP ONE (21:17)
[2023-11-23] MEDS: NACL 0.9% 1,000 ML IV ONE (21:20)
[2023-11-23] MEDS ORDERED: PIPERACILLIN/TAZOBACTAM 3.375 GM/VIAL (ZOSYN) IV ONE (21:25)
[2023-11-23] MEDS: ACETAMINOPHEN 500 MG TABLET PO ONE (21:28)
[2023-11-23] MEDS: PIPERACILLIN/TAZO 3.375 GM in NS 50 ML IV ONE (21:28)
[2023-11-23 21:35] LABS: BASOPHILS % (AUTO) 0.5 % (0.0-2.0); BILIRUBIN,URINE NEGATIVE (NEGATIVE); BLOOD, URINE 3+ (NEGATIVE); EOSINOPHILS # (AUTO) 0.1 K/uL (0.0-0.4); EOSINOPHILS % (AUTO) 1.8 % (0.0-4.0); GLUCOSE,URINE NEGATIVE (NEGATIVE); HEMATOCRIT 30.9 % (36-48); HEMOGLOBIN 10.3 g/dL (12.0-16.0); KETONES,URINE NEGATIVE (NEGATIVE); LEUKOCYTE ESTERASE ,URINE 1+ (NEGATIVE); LYMPHOCYTES # (AUTO) 1.3 K/uL (1.0-5.5); LYMPHOCYTES % (AUTO) 25.7 % (20.5-51.5); MEAN CORPUSCULAR HEMOGLOBIN 29 pg (27-31); MEAN CORPUSCULAR HGB CONC 33 % (32-36); MEAN CORPUSCULAR VOLUME 86 fL (79.0-98.0); MONOCYTES # (AUTO) 0.4 K/uL (0.0-1.0); MONOCYTES % (AUTO) 8.7 % (1.7-9.3); NEUTROPHILS # (AUTO) 3.2 K/uL (1.8-7.7); NEUTROPHILS % (AUTO) 63.3 % (40.0-70.0); NITRITE, URINE NEGATIVE (NEGATIVE); PH,URINE 7.5 (5.0-8.0); PLATELET COUNT (AUTO) 299 K/uL (130-430); PROTEIN URINE 3+ (NEGATIVE); RED BLOOD CELL COUNT(AUTO) 3.58 MIL/uL (4.2-6.2); RED CELL DISTRIBUTION WIDTH 14.9 % (9.0-15.0); UROBILINOGEN,URINE 0.2 (0.2-1.0); WHITE BLOOD COUNT (AUTO) 5.1 K/uL (4.8-10.8)
[2023-11-23 21:40] LABS: CLARITY/URINE CLOUDY (CLEAR); COLOR,URINE RED (YELLOW)
[2023-11-23 21:41] LABS: BACTERIA,URINE FEW /HPF (None Seen); MUCUS,URINE None Seen /LPF (None Seen); RBC,URINE >100 /HPF (0-3)
[2023-11-23 21:55] LABS: ALBUMIN 3.3 g/dL (3.4-4.8); BILIRUBIN,DIRECT 0.1 mg/dL (0.0-0.3); CALCIUM 8.5 mg/dL (8.4-11.0); CREATININE 1.1 mg/dL (0.55-1.30); POTASSIUM 4.6 mmol/L (3.5-5.1); TOTAL BILIRUBIN 0.2 mg/dL (0.0-1.0); TOTAL PROTEIN, SERUM 6.4 g/dL (6.4-8.3)
[2023-11-24] MEDS: KETOROLAC TROMETHAMINE 15 MG VIAL IVP ONE (00:28)
[2023-11-24] MEDS ORDERED: IBUP-1969 PO (00:53)
[2023-11-24] MEDS ORDERED: CEFP200T21 PO (00:53)
[2023-11-24] MEDS: MORPHINE 4 MG INJ. 4 MG/ML VIAL IVP ONE (01:02)
[2023-11-24 01:17] VITALS: BP_SYST 107; PULSE 67; RESP 22; TEMP 98; O2SAT 97
== END 2023-11-24 01:17 | disposition home or self-care (01) ==
LOC: SED 20:38
DX: N30.00 Acute cystitis without hematuria (principal); R10.9 Unspecified abdominal pain; Z97.8 Presence of other specified devices; Z87.442 Personal history of urinary calculi; Z88.1 Allergy status to other antibiotic agents; Z88.8 Allergy status to other drugs, medicaments and biological substances; Z79.899 Other long term (current) drug therapy; Z79.2 Long term (current) use of antibiotics
CPT/HCPCS: 99285; 74176; 96365; 96375 ×2; 80076; 80048; 81001; 83690; 85025; 87040; 87086; 36415; 81025; 83605; J2405; J2543; J1170; J1885; J2270; 81000; 81015

== ENCOUNTER 2024-02-27 23:44 | Emergency (ER) | payer OTHER ==
[~2024-02-27] VITALS: Ht 154.9 cm; Wt 49.0 kg
[~2024-02-27 23:44] MED LIST changes: +CEFP200T21 PO; +IBUP-1969 PO
[2024-02-27 23:59] VITALS: BP_SYST 108; PULSE 84; RESP 16; TEMP 97.4; O2SAT 99
[2024-02-28 00:36] LABS: BASOPHILS % (AUTO) 0.7 % (0.0-2.0); EOSINOPHILS # (AUTO) 0.4 K/uL (0.0-0.4); EOSINOPHILS % (AUTO) 7.3 % (0.0-4.0); HEMATOCRIT 33.5 % (36-48); HEMOGLOBIN 11.1 g/dL (12.0-16.0); LYMPHOCYTES # (AUTO) 2.2 K/uL (1.0-5.5); LYMPHOCYTES % (AUTO) 42.1 % (20.5-51.5); MEAN CORPUSCULAR HEMOGLOBIN 29 pg (27-31); MEAN CORPUSCULAR HGB CONC 33 % (32-36); MEAN CORPUSCULAR VOLUME 88 fL (79.0-98.0); MONOCYTES # (AUTO) 0.3 K/uL (0.0-1.0); MONOCYTES % (AUTO) 6.5 % (1.7-9.3); NEUTROPHILS # (AUTO) 2.2 K/uL (1.8-7.7); NEUTROPHILS % (AUTO) 43.4 % (40.0-70.0); PLATELET COUNT (AUTO) 301 K/uL (130-430); RED BLOOD CELL COUNT(AUTO) 3.83 MIL/uL (4.2-6.2); RED CELL DISTRIBUTION WIDTH 15.7 % (9.0-15.0); WHITE BLOOD COUNT (AUTO) 5.2 K/uL (4.8-10.8)
[2024-02-28 00:43] LABS: BILIRUBIN,URINE NEGATIVE (NEGATIVE); CLARITY/URINE CLEAR (CLEAR); COLOR,URINE YELLOW (YELLOW); GLUCOSE,URINE NEGATIVE (NEGATIVE); KETONES,URINE NEGATIVE (NEGATIVE); LEUKOCYTE ESTERASE ,URINE NEGATIVE (NEGATIVE); NITRITE, URINE NEGATIVE (NEGATIVE); PROTEIN URINE NEGATIVE (NEGATIVE); UROBILINOGEN,URINE 0.2 (0.2-1.0)
[2024-02-28 00:44] LABS: BLOOD, URINE TRACE (NEGATIVE)
[2024-02-28 00:56] LABS: ALBUMIN 3.3 g/dL (3.4-4.8); BILIRUBIN,DIRECT 0.1 mg/dL (0.0-0.3); CALCIUM 8.4 mg/dL (8.4-11.0); CREATININE 0.83 mg/dL (0.55-1.30); POTASSIUM 4.3 mmol/L (3.5-5.1); TOTAL BILIRUBIN 0.2 mg/dL (0.0-1.0); TOTAL PROTEIN, SERUM 6.4 g/dL (6.4-8.3)
[2024-02-28 01:06] LABS: BACTERIA,URINE RARE /HPF (None Seen); RBC,URINE 0-3 /HPF (0-3); WBC,URINE 0-3 /HPF (0-3)
[2024-02-28] MEDS: KETOROLAC TROMETHAMINE 15 MG VIAL IVP ONE (01:42)
[2024-02-28] MEDS: MORPHINE 4 MG INJ. 4 MG/ML VIAL IVP ONE (03:59)
[2024-02-28] MEDS ORDERED: HYDR-3917 PO (05:57)
[2024-02-28] MEDS ORDERED: CIPR7.5D6 RIGHT EAR (05:57)
[2024-02-28 06:11] VITALS: BP_SYST 103; PULSE 82; RESP 16; TEMP 98.4; O2SAT 98
== END 2024-02-28 06:14 | disposition home or self-care (01) ==
LOC: SED 23:44
DX: N20.0 Calculus of kidney (principal); H60.501 Unspecified acute noninfective otitis externa, right ear; R10.31 Right lower quadrant pain; M54.50 Low back pain, unspecified; Z88.1 Allergy status to other antibiotic agents; Z88.8 Allergy status to other drugs, medicaments and biological substances
CPT/HCPCS: 99285; 80076; 80048; 81001; 83690; 85025; 36415; 81000; 74176; 96374; 96375; 81025; 81015; J1885; J2270